=== PATIENT | female | born 1960 | race Caucasian/White ===

== ENCOUNTER 2018-07-06 06:43 | Day surgery (SDC) | payer OTHER ==
[2018-06-28 11:37] VITALS: BMI 29.0
[2018-07-06] MEDS ORDERED: LIDOCAINE HCL 2% (20ML MULTI-DOSE VIAL) NR ONE (07:14)
[2018-07-06] MEDS ORDERED: PROPOFOL 20 ML ONE (07:32)
[2018-07-06] MEDS ORDERED: MIDAZOLAM HCL 2 MG/2 ML SINGLE DOSE VIAL ONE (07:33)
[2018-07-06] MEDS ORDERED: SUCCINYLCHOLINE CHLORIDE 200 MG/10 ML VIAL ONE (07:33)
[2018-07-06] MEDS ORDERED: ONDANSETRON 4 MG/2 ML VIAL ONE (07:44)
[2018-07-06] MEDS ORDERED: KETOROLAC TROMETHAMINE 30 MG/1 ML VIAL ONE (07:44)
[2018-07-06] MEDS ORDERED: DEXAMETHASONE SOD PHOSPHATE 4 MG/1 ML VIAL ONE (07:44)
[2018-07-06 08:26] VITALS: PULSE 66; TEMP 97.4
[2018-07-06 08:52] VITALS: BP 135/85
--- NOTE | 2018-07-06 11:32 | OP ---
DATE OF OPERATION: 07/06/2018 PREOPERATIVE DIAGNOSIS: Right trigger thumb. POSTOPERATIVE DIAGNOSIS: Right trigger thumb. OPERATIVE PROCEDURE: Right trigger thumb release. SURGEON: Gordon Gilman MD ANESTHESIA: Local with sedation. COMPLICATIONS: None. ESTIMATED BLOOD LOSS: Minimal. INDICATIONS FOR PROCEDURE: The patient is a 58-year-old female with the above findings. She was indicated for operative treatment. The risks, benefits, and alternatives were discussed with the patient at length. Proper informed consent was obtained. DESCRIPTION OF PROCEDURE: After proper identification of the patient and the correct operative site, the patient was brought to the operating room and placed supine on the operating table. All bony prominences were well padded. Sedation was given, local anesthesia was given. Right upper extremity was prepped and draped in the usual sterile fashion. Tourniquet was inflated to 250 mmHg. A transverse incision was made in the thumb A1 ezra. Incision was taken sharply through the skin with blunt dissection to the A1 ezra. A1 ezra was divided. Patient was asked to flex and extend the thumb, and no further triggering was noted. Wound was repaired with a 5-0 nylon suture. Sterile dressings were applied. Patient was brought to the recovery room in stable condition. She tolerated the procedure well. Jovi DE [id number]
== END 2018-07-06 09:05 | disposition home or self-care (01) ==
LOC: FASU 06:43
PROVIDERS: ATTEND Orthopaedic Surgery Hand Surgery
PROC: 0LN70ZZ Release Right Hand Tendon, Open Approach (ICD-10-PCS; principal; 2018-07-06 07:45)
DX: M65.311 Trigger thumb, right thumb (principal)